=== PATIENT | female | born 1945 | race Caucasian/White ===

== ENCOUNTER → 2021-07-07 | Day surgery (SDC) | payer MEDICARE, OTHER ==
[~2021-07-07] MED LIST: Brimonidine 0.2% Ophth Soln 5 ML Bottle ONE; Dexamethasone/Tobramycin 0.1-0.3% Ophth Susp 2.5 ML Bottle ONE; Lactated Ringers 1,000 ML IV PRN; Midazolam 1 MG/ML 2 ML SDV IV ONE; Sodium Chloride 0.9% 10 ML Syringe FLUSH PRN; Tetracaine HCl/PF 0.5% 4 ML Bottle ONE; acetaZOLAMIDE 500 MG Cap.ER PO ONE
== END ==
LOC: FB.SDS 11:41
PROVIDERS: ATTEND Ophthalmology
DX: E11.36 Type 2 diabetes mellitus with diabetic cataract (principal); H25.813 Combined forms of age-related cataract, bilateral; H34.8312 Tributary (branch) retinal vein occlusion, right eye, stable; H35.363 Drusen (degenerative) of macula, bilateral; I10 Essential (primary) hypertension; E78.00 Pure hypercholesterolemia, unspecified; K21.9 Gastro-esophageal reflux disease without esophagitis; I25.2 Old myocardial infarction; F17.210 Nicotine dependence, cigarettes, uncomplicated; Z88.6 Allergy status to analgesic agent; Z98.890 Other specified postprocedural states; Z90.49 Acquired absence of other specified parts of digestive tract; Z79.899 Other long term (current) drug therapy; Z86.73 Personal history of transient ischemic attack (TIA), and cerebral infarction without residual deficits
CPT/HCPCS: 00142-QZ; A9270-GY; J2250; V2632

== ENCOUNTER 2021-08-11 08:55 | Day surgery (SDC) | payer MEDICARE, OTHER ==
[2021-08-11] MEDS ORDERED: fentaNYL 100 MCG/2 ML SDV IV ONE (08:56)
[2021-08-11] MEDS ORDERED: Sodium Chloride 0.9% 10 ML Syringe IV ONE (08:56)
[2021-08-11] MEDS ORDERED: Midazolam 1 MG/ML 2 ML SDV IV ONE (08:56)
[2021-08-11] MEDS ORDERED: Lactated Ringers 1,000 ML IV PRN (09:00)
[2021-08-11] MEDS: Sodium Chloride 0.9% 10 ML Syringe FLUSH PRN (09:25)
[2021-08-11] MEDS: acetaZOLAMIDE 500 MG Cap.ER PO ONE (10:50)
== END 2021-08-11 11:15 | disposition home or self-care (01) ==
LOC: FB.SDS 08:55
PROVIDERS: ATTEND Ophthalmology
DX: E11.36 Type 2 diabetes mellitus with diabetic cataract (principal); H25.813 Combined forms of age-related cataract, bilateral; H34.8312 Tributary (branch) retinal vein occlusion, right eye, stable; H35.363 Drusen (degenerative) of macula, bilateral; I10 Essential (primary) hypertension; F41.9 Anxiety disorder, unspecified; K21.9 Gastro-esophageal reflux disease without esophagitis; E78.5 Hyperlipidemia, unspecified; I25.2 Old myocardial infarction; F17.210 Nicotine dependence, cigarettes, uncomplicated; Z90.49 Acquired absence of other specified parts of digestive tract; Z98.890 Other specified postprocedural states; Z79.899 Other long term (current) drug therapy
CPT/HCPCS: 00142-QZ; A9270-GY; J2250; J3010; J3490; V2632